=== PATIENT | male | born 1995 | race Caucasian/White ===

== ENCOUNTER 2025-03-13 18:21 | Emergency (ER) | payer BC, SELFPAY ==
[2025-03-13 18:33] VITALS: BP 106/76; PULSE 86; RESP 16; TEMP 36.1; O2SAT 99
--- NOTE | 2025-03-13 18:51 | ED_ITS ---
HPI - General Adult General Chief complaint: Dizziness Stated complaint: LIGHT HEADED/SWEATY Time Seen by Provider: 03/13/25 18:22 Source: patient Mode of arrival: ambulatory Limitations: no limitations History of Present Illness HPI narrative: Patient is a 29-year-old male who presents with having an episode of feeling lightheaded and diaphoretic while getting eyebrows and green trimmed after a haircut. Patient states symptoms started while having eyebrows done but he fought through it, but once he extended neck upward symptoms worsened. Patient states symptoms improved quickly after he sat up. Afterwards patient had moderate headache but that is also improved to a 2/10 at this time. Patient states he has not eaten or drink anything today. Denies any upper respiratory symptoms, fever, chills, nausea, vomiting, diarrhea. States he no longer has any lightheadedness and denies any vision changes, numbness, tingling or weakness to extremities. Related Data Home Medications ?Medication ?Instructions ?Recorded ?Confirmed ?Last Taken ?Type No Home Medications 03/13/25 03/13/25 U nknown History Allergies Allergy/AdvReac Type Severity Reaction Status Date / Time No Known Allergies Allergy Verified 03/13/25 18:38 Review of Systems Review of Systems: All systems reviewed & are unremarkable except as noted in HPI and below Constitutional: Constitutional: Denies body ache(s), Denies chills, Denies fatigue, Denies fever(s), Reports headache(s), Denies malaise and Denies weakness Eyes: Eyes: Denies blurry vision, Denies irritation and Denies loss of vision ENT: Denies otalgia, Reports headache(s), Denies nasal discharge, Denies sinus pain and Denies sore throat Cardiovascular: Cardiovascular: Denies chest pain, Denies irregular heart rhythm and Denies dyspnea Respiratory: Respiratory: Denies dyspnea Gastrointestinal: Gastrointestinal: Denies abdominal pain, Denies melena, Denies hematochezia, Denies diarrhea, Denies nausea and Denies vomiting Musculoskeletal: Musculoskeletal: Denies back pain, Denies myalgias and Denies arthralgias Integumentary/Breasts: Skin/Breast: Denies pruritus and Denies rash Neurologic: Reports syncope (near), Reports headache(s), Denies loss of vision and Denies weakness Psychiatric: Psychiatric: Reports no additional psychiatric complaints Endocrine: Endocrine: Reports excessive sweating and Denies fatigue PMFSH Social History Social History Smoking status: Never smoker Alcohol intake: current Comments At time of signature, agree with nursing past medical, surgical, social and family history. There is no relevant family history pertinent to the presenting complaint. Exam Const: General: cooperative, healthy appearing, comfortable, no acute distress and well nourished Nutritional Appearance: well nourished Orientation/consciousness: patient oriented x3 Limitations: no limitations HENMT: Head: normal to inspection, normocephalic and atraumatic Ears: hearing grossly normal bilaterally and external ears normal Face/Nose/Sinus: Normal external nose present, normal facial exam and face symmetric Face and sinus: normal facial exam and face symmetric Mouth: Yes lip normal Eyes: General: appearance normal, both eyes and all related structures Alignment and Position: alignment normal and position normal Periorbital: periorbital findings normal Eyelids: eyelids normal Pupils: Equal, round and reactive pupils present EOM: EOMs intact bilaterally Neck: Neck: normal visual inspection, full ROM and supple Chest: Chest palpation & inspection: normal inspection of the chest Resp: Effort & Inspection: normal respiratory effort and able to speak in complete sentences Auscultation: clear to auscultation bilaterally Cardio: Rate: regular rate Rhythm: regular rhythm Heart sounds: S1 normal heart sound present and S2 normal heart sound present GI: Inspection: normal to inspection Skin: General skin exam: normal color and no rashes or lesions noted Neuro: General: patient oriented x3 and moves all extremities Cranial nerves: Yes Equal, round and reactive pupils present Cognition (Neuro): normal cognition Speech: normal speech Gait exam (Neuro): Normal gait present Motor exam (neuro): 5/5 motor strength present throughout, Normal motor muscle tone present throughout and Motor abnormalities not present Sensory Exam: normal sensation Extrem: General: normal to inspection, full ROM and no edema Psych: Appearance: grossly normal and well kempt Mental Status: mental status grossly normal Speech and movement: Normal speech and movement present Affect: normal affect Attitude: cooperative Thought process: Normal thought process present Course Course Emergency Course: Patient is aware of diagnosis, understands and agrees to treatment plan. Anticipatory guidance given. Patient agrees to follow-up as directed and is aware of reasons to seek care at the emergency department. Portions of this record may have been created with voice recognition software Level of Care: Express Care Visit Vital Signs Vital signs: Vital Signs Temperature 36.1 C L 03/13/25 18:33 Pulse Rate 86 03/13/25 18:33 Respiratory Rate 16 03/13/25 18:33 Blood Pressure 106/76 03/13/25 18:33 Pulse Oximetry 99 03/13/25 18: Temperature 36.1 C L 03/13/25 18: Pulse Rate 86 03/13/25 18:33 Respiratory Rate 16 03/13/25 18:33 Blood Pressure 106/76 03/13/25 18:33 Pulse Oximetry 99 03/13/25 18:33 Reviewed Medical Decision Making MDM Narrative Medical decision making narrative: there is no diplopia, dysarthria, or dysphagia. Patients gait is stable and there are no focal neurological deficits on exam. Risk for central causes has been reviewed. Patient felt likely reasonable for continued outpatient management and risks are felt to outweigh benefits for further imaging studies at this time. Patient's vitals are stable at this time. Patient removal to go you symptoms and drink fluids electrolytes. Patient will establish with PCP either the 1 provided or will call the liaison number. Patient declines transfer to emergency department at this time but does state he will go if he has any return of symptoms, worsening headache, vision changes, numbness, tingling or weakness to extremities. Pt well hydrated appearing, in no respiratory distress, hemodynamically stable. Recommend supportive care. The patient is stable at time of discharge the clinical impression was discussed and the patient was given the opportunity to ask questions, which were addressed as completely as possible given the information available at present. Anticipatory guidance and return to care precautions were discussed and the importance of primary care follow-up was stressed and encouraged. The patient voiced understanding of the plan, indications to return, and the need for follow-up. Exam findings show no acute concerns or changes Patient is appropriate for outpatient treatment and follow-up. Differential Diagnosis Differential Diagnosis: Near syncope,transient vertebrobasilar insufficiency Vital Signs Vital Signs: Vital Signs Temperature 36.1 C L 03/13/25 18:33 Pulse Rate 86 03/13/25 18:33 Respiratory Rate 16 03/13/25 18:33 Blood Pressure 106/76 03/13/25 18:33 Pulse Oximetry 99 03/13/25 18:33 Temperature 36.1 C L 03/13/25 18:33 Pulse Rate 86 03/13/25 18:33 Respiratory Rate 16 03/13/25 18:33 Blood Pressure 106/76 03/13/25 18:33 Pulse Oximetry 99 03/13/25 18:33 Reviewed Lab Data Lab results reviewed: Yes I reviewed the patient's lab results. Discharge Plan Discharge Clinical Impression: Near syncope Patient Disposition: Home Condition: Stable Instructions: Near Syncope (ED) Additional Instructions: 1) Please establish with a PCP within the next week 2) If you have any worsening of symptoms including worsening dizziness, profuse vomiting, vision changes or any other urgent concerns please go to the ER. 3) Please continue taking your home medications as usual. 4) Please read and follow information included in discharge instructions. If you are having a hard time finding a physician please call our [facility] liaison at [phone]. Patient Language: Croatian Prescriptions: No Action No Home Medications Follow-up/Referrals: Dionne Bolton DO [Physician, Family Practice] - 3 Days Referral Note: Establish care Time of Disposition: 18:56
== END 2025-03-13 19:00 | disposition home or self-care (01) ==
PROVIDERS: Emergency Provider Nurse Practitioner Family
DX: R55 Syncope and collapse (principal)
CPT/HCPCS: 99202; G0463